=== PATIENT | female | born 1955 | race Two or more races ===

== ENCOUNTER 2016-09-06 20:58 | Inpatient (IN) | payer BC ==
[~2016-09-06] VITALS: Ht 157.5 cm; Wt 135.5 kg
[~2016-09-06 20:58] MED LIST: ATEN-60 PO; CAR200T PO; HYDR12.56 PO; KEPRA PO
[2016-09-06 22:10] LABS: Basophils # (auto) 0 uL; Basophils % (auto) 0.9 % (0.0-2.0); Eosinophils # (auto) 0.3 uL; Eosinophils % (auto) 7.6 % (0.0-7.0); Hematocrit 45.5 % (36.0-46.0); Hemoglobin 15.6 g/dL (12.2-16.2); Lymphocytes # (auto) 1.6 uL; Lymphocytes % (auto) 35.3 % (10.0-50.0); Mean Corpuscular Hemoglobin 33.5 pg (28.0-32.0); Mean Corpuscular Hgb Conc. 34.2 g/dL (32.0-36.0); Mean Corpuscular Volume 97.9 fL (80.0-100.0); Mean Platelet Volume 8.9 fL (7.4-10.4); Monocytes # (auto) 0.3 uL; Monocytes % (auto) 5.7 % (0.0-12.0); Neutrophils # (auto) 2.3 uL; Neutrophils % (auto) 50.5 % (37.0-80.0); Platelet Count (auto) 237 10^3/uL (140-450); White Blood Cell 4.5 10^3/uL (4.4-10.8)
[2016-09-06 22:24] LABS: Albumin 3.9 g/dL (3.4-5.0); BUN/Creatinine Ratio 18.9; Calcium 8.6 mg/dL (8.5-10.1); Potassium 3.4 mmol/L (3.5-5.1)
[2016-09-06 22:37] LABS: Bilirubin, Total 0.3 mg/dL (0.2-1.0); Total Protein 7.5 g/dL (6.4-8.2)
[2016-09-07] MEDS ORDERED: NALBUPHINE HCL 10 MG/1ml INJECTION IV ONE (09:00)
[2016-09-07] MEDS ORDERED: ONDANSETRON HCL 4 MG/2 ML VIAL IV ONE (09:00)
[2016-09-07] MEDS ORDERED: DEXTROSE (50%) 50ML SYRG IV PRN (11:30)
[2016-09-07] MEDS: InsuLIN REG 1unit/0.01ml Soln (100units/ml) SC SCH ×3 (11:30→21:52)
[2016-09-07] MEDS ORDERED: LORazepam 2MG/ML-1ML VIAL IV PRN (11:30)
[2016-09-07] MEDS ORDERED: POTASSIUM CHL 10 Meq TABLET PO ONE (11:30)
[2016-09-07] MEDS: ACCU-CHEK COMFORT CURVE STRIP VI SCH ×3 (11:41→21:25)
[2016-09-07] MEDS ORDERED: ACETAMINOPHEN 325 MG TAB PO PRN (11:45)
[2016-09-07] MEDS ORDERED: ONDANSETRON HCL 4 MG/2 ML VIAL IV PRN (11:45)
[2016-09-07] MEDS ORDERED: TEMAZEPAM 15 MG CAP PO PRN (11:45)
[2016-09-07] MEDS ORDERED: MORPHINE SULF INJ 2 MG/ML SYRINGE 1ML IV PRN (11:45)
[2016-09-07] MEDS ORDERED: DOCUSATE SOD 100 MG CAP PO PRN (11:45)
[2016-09-07] MEDS: LEVETIRACETAM 500 MG TAB PO SCH ×2 (12:00→22:06)
[2016-09-07] MEDS ORDERED: cefTRIAXone 1GM/50ML D5W 50 ML IV ONE (12:00)
[2016-09-07] MEDS: carBAMazepine 200 MG TAB PO SCH ×2 (12:00→22:06)
[2016-09-07] MEDS: FAMOTIDINE 20 MG TAB PO SCH ×2 (12:00→22:06)
[2016-09-07] MEDS: TOPIRAMATE 100 MG TAB PO SCH ×2 (12:00→22:06)
[2016-09-07] MEDS: ATENOLOL 25 MG TAB PO SCH (12:47)
[2016-09-07] MEDS: HCTZ 25 MG TAB PO SCH (12:47)
[2016-09-07] MEDS: ENOXAPARIN SOD 40 MG/0.4 ML SYRINGE SC SCH (12:48)
[2016-09-07] MEDS ORDERED: TOPI100T68 PO ×2 (13:06)
[2016-09-07] MEDS ORDERED: LACO100T PO ×2 (13:06)
[2016-09-07] MEDS ORDERED: KEP500T PO (13:06)
[2016-09-07] MEDS ORDERED: FENO160T8 PO (13:06)
[2016-09-07 13:07] VITALS: BP 130/70
[2016-09-07] MEDS: SODIUM CHLOR 0.9% PF (SALINE LOCK) 10ML VIAL IV SCH ×2 (14:53→22:06)
[2016-09-07 16:24] VITALS: BP 118/56
[2016-09-07] MEDS: HYDROcodone-ACET 5/325MG TAB PO PRN ×2 (17:56→18:03)
[2016-09-07 21:06] VITALS: BP 105/60
[2016-09-07 23:14] LABS: Urine RBC None Seen /hpf (0 - 4)
[2016-09-07 23:31] LABS: Urine Bilirubin Negative (Negative); Urine Blood Negative /uL (Negative); Urine Color Yellow (Yellow); Urine Glucose Normal (Normal); Urine Ketone Negative (Negative); Urine Nitrite Negative (Negative); Urine Squamous Epithelial Cell FEW /hpf (<5); Urine Urobilinogen Normal (Negative); Urine pH 6.5 (5.0-8.0)
[2016-09-08] MEDS: HYDROcodone-ACET 5/325MG TAB PO PRN ×2 (02:53→20:28)
[2016-09-08 05:42] VITALS: BP 100/63
[2016-09-08] MEDS: SODIUM CHLOR 0.9% PF (SALINE LOCK) 10ML VIAL IV SCH ×3 (06:06→22:22)
[2016-09-08] MEDS: InsuLIN REG 1unit/0.01ml Soln (100units/ml) SC SCH ×5 (06:06→22:26)
[2016-09-08] MEDS: ACCU-CHEK COMFORT CURVE STRIP VI SCH ×4 (06:06→22:26)
[2016-09-08 06:18] LABS: Basophils # (auto) 0 uL; Eosinophils # (auto) 0.3 uL; Eosinophils % (auto) 7.5 % (0.0-7.0); Hematocrit 42.9 % (36.0-46.0); Hemoglobin 14.6 g/dL (12.2-16.2); Lymphocytes # (auto) 1.3 uL; Mean Corpuscular Hemoglobin 33.6 pg (28.0-32.0); Mean Corpuscular Hgb Conc. 34.1 g/dL (32.0-36.0); Mean Corpuscular Volume 98.4 fL (80.0-100.0); Mean Platelet Volume 9.4 fL (7.4-10.4); Monocytes # (auto) 0.2 uL; Monocytes % (auto) 5.7 % (0.0-12.0); Neutrophils # (auto) 2.2 uL; Neutrophils % (auto) 53.8 % (37.0-80.0); Platelet Count (auto) 197 10^3/uL (140-450); Red Cell Distribution Width 13.3 % (11.6-16.0); White Blood Cell 4.1 10^3/uL (4.4-10.8)
[2016-09-08 06:29] LABS: Albumin 3.4 g/dL (3.4-5.0); BUN/Creatinine Ratio 19.2; Bilirubin, Total 0.4 mg/dL (0.2-1.0); Calcium 8.2 mg/dL (8.5-10.1); Potassium 3.4 mmol/L (3.5-5.1); Total Protein 6.6 g/dL (6.4-8.2)
[2016-09-08 09:00] VITALS: BP 98/61
[2016-09-08] MEDS ORDERED: POTASSIUM CHL 10 Meq TABLET PO ONE (09:30)
[2016-09-08] MEDS: HCTZ 25 MG TAB PO SCH (10:00)
[2016-09-08] MEDS: ATENOLOL 25 MG TAB PO SCH (10:00)
[2016-09-08] MEDS: cefTRIAXone 1GM/50ML D5W 50 ML IV SCH (10:18)
[2016-09-08] MEDS: ENOXAPARIN SOD 40 MG/0.4 ML SYRINGE SC SCH (10:26)
[2016-09-08] MEDS: LEVETIRACETAM 500 MG TAB PO SCH ×2 (10:30→22:23)
[2016-09-08] MEDS: FAMOTIDINE 20 MG TAB PO SCH ×2 (10:42→22:23)
[2016-09-08] MEDS: carBAMazepine 200 MG TAB PO SCH ×2 (10:42→22:24)
[2016-09-08] MEDS: TOPIRAMATE 100 MG TAB PO SCH ×2 (10:42→22:25)
[2016-09-08] MEDS: MULTIPLE VITAMIN TAB PO SCH (10:42)
[2016-09-08 13:00] VITALS: BP 134/66
[2016-09-08 17:00] VITALS: BP 115/58
[2016-09-08 20:00] VITALS: BP 112/70
[2016-09-08 22:55] VITALS: BP 112/70
[2016-09-09 05:45] VITALS: BP 117/63
[2016-09-09] MEDS: SODIUM CHLOR 0.9% PF (SALINE LOCK) 10ML VIAL IV SCH ×3 (05:57→21:16)
[2016-09-09] MEDS: InsuLIN REG 1unit/0.01ml Soln (100units/ml) SC SCH (06:04)
[2016-09-09] MEDS: ACCU-CHEK COMFORT CURVE STRIP VI SCH (06:04)
[2016-09-09 06:53] LABS: Basophils # (auto) 0 uL; Basophils % (auto) 0.8 % (0.0-2.0); Eosinophils # (auto) 0.3 uL; Hematocrit 43.3 % (36.0-46.0); Hemoglobin 15.1 g/dL (12.2-16.2); Lymphocytes # (auto) 1.5 uL; Lymphocytes % (auto) 38.9 % (10.0-50.0); Mean Corpuscular Hemoglobin 33.8 pg (28.0-32.0); Mean Corpuscular Hgb Conc. 34.9 g/dL (32.0-36.0); Mean Corpuscular Volume 96.9 fL (80.0-100.0); Monocytes # (auto) 0.3 uL; Monocytes % (auto) 7.4 % (0.0-12.0); Neutrophils # (auto) 1.7 uL; Neutrophils % (auto) 44.9 % (37.0-80.0); Platelet Count (auto) 220 10^3/uL (140-450); Red Cell Distribution Width 13.1 % (11.6-16.0); White Blood Cell 3.9 10^3/uL (4.4-10.8)
[2016-09-09 07:10] LABS: Albumin 3.1 g/dL (3.4-5.0); Calcium 8.4 mg/dL (8.5-10.1); Potassium 3.3 mmol/L (3.5-5.1)
[2016-09-09 07:12] LABS: BUN/Creatinine Ratio 22.2
[2016-09-09 07:23] LABS: Bilirubin, Total 0.3 mg/dL (0.2-1.0); Total Protein 6.6 g/dL (6.4-8.2)
[2016-09-09] MEDS: cefTRIAXone 1GM/50ML D5W 50 ML IV SCH (08:27)
[2016-09-09 09:00] VITALS: BP 118/70
[2016-09-09] MEDS: LEVETIRACETAM 500 MG TAB PO SCH ×2 (09:35→21:14)
[2016-09-09] MEDS: MULTIPLE VITAMIN TAB PO SCH (09:35)
[2016-09-09] MEDS: carBAMazepine 200 MG TAB PO SCH ×2 (09:35→21:15)
[2016-09-09] MEDS: TOPIRAMATE 100 MG TAB PO SCH ×2 (09:36→21:15)
[2016-09-09] MEDS: HYDROcodone-ACET 5/325MG TAB PO PRN ×2 (09:36→21:54)
[2016-09-09] MEDS: FAMOTIDINE 20 MG TAB PO SCH ×2 (09:38→21:15)
[2016-09-09] MEDS: ATENOLOL 25 MG TAB PO SCH (09:38)
[2016-09-09] MEDS: ENOXAPARIN SOD 40 MG/0.4 ML SYRINGE SC SCH (09:39)
[2016-09-09] MEDS: HCTZ 25 MG TAB PO SCH (09:47)
[2016-09-09] MEDS ORDERED: ceFAZolin 1GM/50ML D5W 50 ML IV ONE (10:15)
[2016-09-09] MEDS ORDERED: POTASSIUM CHL 20 Meq TABLET PO ONE (10:15)
[2016-09-09 13:00] VITALS: BP 122/59
[2016-09-09] MEDS: ceFAZolin 1GM/50ML D5W 50 ML IV SCH ×2 (14:35→21:14)
[2016-09-09 17:00] VITALS: BP 107/63
[2016-09-09 20:00] VITALS: BP 107/63
[2016-09-09 22:39] VITALS: BP 115/68
[2016-09-10] VITALS (7 sets, daily range): BP systolic 105–119; BP diastolic 57–77
[2016-09-10] MEDS: SODIUM CHLOR 0.9% PF (SALINE LOCK) 10ML VIAL IV SCH ×3 (05:13→22:00)
[2016-09-10] MEDS: ceFAZolin 1GM/50ML D5W 50 ML IV SCH (05:13)
[2016-09-10 05:27] LABS: Basophils # (auto) 0 uL; Basophils % (auto) 0.7 % (0.0-2.0); Eosinophils # (auto) 0.4 uL; Eosinophils % (auto) 8.6 % (0.0-7.0); Hematocrit 43.7 % (36.0-46.0); Lymphocytes # (auto) 1.6 uL; Lymphocytes % (auto) 38.1 % (10.0-50.0); Mean Corpuscular Hemoglobin 33.7 pg (28.0-32.0); Mean Corpuscular Hgb Conc. 34.2 g/dL (32.0-36.0); Mean Corpuscular Volume 98.3 fL (80.0-100.0); Mean Platelet Volume 8.9 fL (7.4-10.4); Monocytes # (auto) 0.3 uL; Neutrophils # (auto) 1.9 uL; Neutrophils % (auto) 45.6 % (37.0-80.0); Platelet Count (auto) 224 10^3/uL (140-450); Red Cell Distribution Width 13.3 % (11.6-16.0); White Blood Cell 4.3 10^3/uL (4.4-10.8)
[2016-09-10 05:41] LABS: BUN/Creatinine Ratio 23.8; Calcium 8.4 mg/dL (8.5-10.1)
[2016-09-10] MEDS: HYDROcodone-ACET 5/325MG TAB PO PRN ×2 (09:19→15:30)
[2016-09-10] MEDS: HCTZ 25 MG TAB PO SCH (10:00)
[2016-09-10] MEDS: ATENOLOL 25 MG TAB PO SCH (10:00)
[2016-09-10] MEDS: TOPIRAMATE 100 MG TAB PO SCH ×2 (10:46→21:46)
[2016-09-10] MEDS: FAMOTIDINE 20 MG TAB PO SCH ×2 (10:47→21:46)
[2016-09-10] MEDS: LEVETIRACETAM 500 MG TAB PO SCH ×2 (10:47→21:45)
[2016-09-10] MEDS: MULTIPLE VITAMIN TAB PO SCH (10:49)
[2016-09-10] MEDS: carBAMazepine 200 MG TAB PO SCH ×2 (10:50→21:46)
[2016-09-10] MEDS: ENOXAPARIN SOD 40 MG/0.4 ML SYRINGE SC SCH (10:51)
[2016-09-10] MEDS: CEPHALEXIN 250 MG CAP PO SCH ×2 (15:24→21:54)
[2016-09-10] MEDS ORDERED: CEPHALEXIN 250 MG CAP PO ONE (21:48)
[2016-09-11 05:00] VITALS: BP 131/67
[2016-09-11] MEDS: SODIUM CHLOR 0.9% PF (SALINE LOCK) 10ML VIAL IV SCH (05:12)
[2016-09-11] MEDS: CEPHALEXIN 250 MG CAP PO SCH (05:14)
[2016-09-11 09:00] VITALS: BP 111/61
[2016-09-11] MEDS: ENOXAPARIN SOD 40 MG/0.4 ML SYRINGE SC SCH (10:15)
[2016-09-11] MEDS: FAMOTIDINE 20 MG TAB PO SCH (10:15)
[2016-09-11] MEDS: ATENOLOL 25 MG TAB PO SCH (10:18)
[2016-09-11] MEDS: TOPIRAMATE 100 MG TAB PO SCH (10:19)
[2016-09-11] MEDS: LEVETIRACETAM 500 MG TAB PO SCH (10:20)
[2016-09-11] MEDS: carBAMazepine 200 MG TAB PO SCH (10:21)
[2016-09-11] MEDS: HCTZ 25 MG TAB PO SCH (10:23)
[2016-09-11] MEDS: MULTIPLE VITAMIN TAB PO SCH (10:23)
[2016-09-11] MEDS: HYDROcodone-ACET 5/325MG TAB PO PRN (10:34)
[2016-09-11 12:10] VITALS: BP 111/61
== END 2016-09-11 14:50 | disposition home or self-care (01) | DRG 603 ==
LOC: ER 21:20 → OVERFLOW 21:21 → OBSVTOIN 21:21 → OVERFLOW 09-07 11:53 → EAST 09-07 12:39 → CENTRAL 09-07 14:20
PROVIDERS: ADMIT Internal Medicine; ATTEND Internal Medicine
DX: L03.115 Cellulitis of right lower limb (principal); E87.0 Hyperosmolality and hypernatremia; Z68.41 Body mass index [BMI] 40.0-44.9, adult; E87.6 Hypokalemia; F32.9 Major depressive disorder, single episode, unspecified; G40.909 Epilepsy, unspecified, not intractable, without status epilepticus; I12.9 Hypertensive chronic kidney disease with stage 1 through stage 4 chronic kidney disease, or unspecified chronic kidney disease; N18.2 Chronic kidney disease, stage 2 (mild); Z90.49 Acquired absence of other specified parts of digestive tract; Z82.49 Family history of ischemic heart disease and other diseases of the circulatory system; Z80.8 Family history of malignant neoplasm of other organs or systems; K76.0 Fatty (change of) liver, not elsewhere classified; E11.22 Type 2 diabetes mellitus with diabetic chronic kidney disease; E11.21 Type 2 diabetes mellitus with diabetic nephropathy; E66.01 Morbid (severe) obesity due to excess calories; F41.9 Anxiety disorder, unspecified; Z71.9 Counseling, unspecified; Z80.9 Family history of malignant neoplasm, unspecified; S89.81XA Other specified injuries of right lower leg, initial encounter; X58.XXXA Exposure to other specified factors, initial encounter; Y92.89 Other specified places as the place of occurrence of the external cause
CPT/HCPCS: 36415; 71010; 73700; 74176; 76856; 80048; 80053; 81001; 82962; 83036; 85025; 87040; 87086; 93306; 93971; 96365; 96372; 96375; G0378; J0690; J0696; J1815; J2405

== ENCOUNTER 2018-03-31 05:05 | Inpatient (IN) | payer SELFPAY ==
[~2018-03-31] VITALS: Ht 167.6 cm; Wt 91.2 kg
[~2018-03-31 05:05] MED LIST changes: +FENO160T8 PO; +KEP500T PO; +LACO100T PO; +TOPI100T68 PO
[2018-03-31 06:10] LABS: Basophils # (auto) 0.1 uL; Basophils % (auto) 0.8 % (0.0-2.0); Eosinophils # (auto) 0.1 uL; Eosinophils % (auto) 0.8 % (0.0-7.0); Hematocrit 51.6 % (36.0-46.0); Hemoglobin 17.5 g/dL (12.2-16.2); Lymphocytes # (auto) 1.3 uL; Lymphocytes % (auto) 15.1 % (10.0-50.0); Mean Corpuscular Hemoglobin 33.2 pg (28.0-32.0); Mean Corpuscular Hgb Conc. 33.8 g/dL (32.0-36.0); Mean Corpuscular Volume 98.1 fL (80.0-100.0); Monocytes # (auto) 0.3 uL; Monocytes % (auto) 3.6 % (0.0-12.0); Neutrophils # (auto) 6.8 uL; Neutrophils % (auto) 79.7 % (37.0-80.0); Nucleated Red Blood Cells % 0.1 %; Platelet Count (auto) 225 10^3/uL (140-450); Red Blood Cells 5.26 10^6/uL (4.0-5.20); Red Cell Distribution Width 13.4 % (11.8-14.3); White Blood Cell 8.6 10^3/uL (4.4-10.8)
[2018-03-31 06:21] LABS: Albumin 4.1 g/dL (3.4-5.0); Calcium 9.1 mg/dL (8.5-10.1); Potassium 3.7 mmol/L (3.5-5.1)
[2018-03-31 06:24] LABS: Bilirubin, Total 0.5 mg/dL (0.2-1.0)
[2018-03-31] MEDS ORDERED: SODIUM CHLORIDE 0.9% 1,000 ML IV ONE ×2 (07:18)
[2018-03-31] MEDS ORDERED: LEVETIRACETAM INJ 500 MG in D5W 5% 100 ML IV ONE (07:30)
[2018-03-31] MEDS ORDERED: SODIUM CHLORIDE 0.9% 1,000 ML IV SCH (08:13)
[2018-03-31] MEDS ORDERED: PROMETHAZINE HCL 25 MG/ML 1ML IV PRN (08:15)
[2018-03-31] MEDS ORDERED: LORazepam 2MG/ML-1ML VIAL IV PRN (08:15)
[2018-03-31] MEDS ORDERED: HYDROcodone-ACET 5/325MG TAB PO PRN (08:15)
[2018-03-31] MEDS ORDERED: ACETAMINOPHEN 500 MG TAB PO PRN (08:15)
[2018-03-31] MEDS ORDERED: NITROGLYCERIN 0.4 MG SL TAB SL PRN (08:15)
[2018-03-31] MEDS ORDERED: LACTULOSE 20Gm/30ML SOLN PO PRN (08:15)
[2018-03-31] MEDS ORDERED: LORazepam 0.5 MG TAB PO PRN (08:15)
[2018-03-31] MEDS ORDERED: MORPHINE SULFATE 4 MG/ML SYR/VIAL IV PRN ×2 (08:15)
[2018-03-31] MEDS ORDERED: TEMAZEPAM 15 MG CAP PO PRN (08:15)
[2018-03-31] MEDS ORDERED: DEXTROSE (50%) 50ML SYRG IV PRN (09:30)
[2018-03-31] MEDS: TRICOR PO SCH (10:00)
[2018-03-31] MEDS: carBAMazepine 200 MG TAB PO SCH ×2 (10:38→21:36)
[2018-03-31] MEDS: LEVETIRACETAM 500 MG TAB PO SCH ×2 (10:39→21:35)
[2018-03-31] MEDS: HCTZ 25 MG TAB PO SCH (10:41)
[2018-03-31] MEDS: ATENOLOL 25 MG TAB PO SCH (10:42)
[2018-03-31] MEDS: PANTOPRAZOLE 40 MG TAB PO SCH (10:43)
[2018-03-31] MEDS: LACOSAMIDE 50 MG TAB PO SCH (10:44)
[2018-03-31] MEDS: ENOXAPARIN SOD 40 MG/0.4 ML SYRINGE SC SCH (11:00)
[2018-03-31] MEDS: ACCU-CHEK COMFORT CURVE STRIP VI SCH ×2 (12:43→18:26)
[2018-03-31 13:00] VITALS: BP 119/73
[2018-03-31] MEDS: SODIUM CHLORIDE 0.9% 1,000 ML IV SCH (14:00)
[2018-03-31 17:00] VITALS: BP 125/70
[2018-03-31] MEDS ORDERED: LACOSAMIDE 50 MG TAB PO SCH (18:00)
[2018-03-31] MEDS ORDERED: TOPIRAMATE 100 MG TAB PO SCH (18:00)
[2018-04-01] MEDS: ACCU-CHEK COMFORT CURVE STRIP VI SCH ×3 (00:27→12:00)
[2018-04-01] MEDS: SODIUM CHLORIDE 0.9% 1,000 ML IV SCH ×2 (04:51→16:40)
[2018-04-01 05:00] VITALS: BP 99/53
[2018-04-01] MEDS: LACOSAMIDE 50 MG TAB PO SCH (05:44)
[2018-04-01 05:53] LABS: Basophils # (auto) 0.1 uL; Basophils % (auto) 1.6 % (0.0-2.0); Eosinophils # (auto) 0.2 uL; Eosinophils % (auto) 4.5 % (0.0-7.0); Hematocrit 44.8 % (36.0-46.0); Hemoglobin 15.4 g/dL (12.2-16.2); Lymphocytes # (auto) 1.6 uL; Lymphocytes % (auto) 36.7 % (10.0-50.0); Mean Corpuscular Hemoglobin 34.1 pg (28.0-32.0); Mean Corpuscular Hgb Conc. 34.4 g/dL (32.0-36.0); Monocytes # (auto) 0.3 uL; Monocytes % (auto) 7.4 % (0.0-12.0); Neutrophils # (auto) 2.1 uL; Neutrophils % (auto) 49.8 % (37.0-80.0); Nucleated Red Blood Cells % 0.2 %; Platelet Count (auto) 213 10^3/uL (140-450); Red Blood Cells 4.53 10^6/uL (4.0-5.20); Red Cell Distribution Width 13.7 % (11.8-14.3); White Blood Cell 4.3 10^3/uL (4.4-10.8)
[2018-04-01 06:11] LABS: Potassium 3.1 mmol/L (3.5-5.1)
[2018-04-01 06:21] LABS: Albumin 3.4 g/dL (3.4-5.0); BUN/Creatinine Ratio 21.5; Bilirubin, Total 0.6 mg/dL (0.2-1.0); Calcium 8.4 mg/dL (8.5-10.1); Total Protein 6.6 g/dL (6.4-8.2)
[2018-04-01] MEDS ORDERED: TOPIRAMATE 100 MG TAB PO SCH (07:00)
[2018-04-01 09:00] VITALS: BP 108/71
[2018-04-01] MEDS: TRICOR PO SCH (10:00)
[2018-04-01] MEDS: carBAMazepine 200 MG TAB PO SCH (10:00)
[2018-04-01] MEDS: ATENOLOL 25 MG TAB PO SCH (10:00)
[2018-04-01] MEDS: LEVETIRACETAM 500 MG TAB PO SCH (10:58)
[2018-04-01] MEDS: HCTZ 25 MG TAB PO SCH (10:58)
[2018-04-01] MEDS: PANTOPRAZOLE 40 MG TAB PO SCH (10:58)
[2018-04-01] MEDS: ENOXAPARIN SOD 40 MG/0.4 ML SYRINGE SC SCH (10:59)
[2018-04-01 13:00] VITALS: BP 114/74
== END 2018-04-01 17:56 | disposition left against medical advice (07) | DRG 101 ==
LOC: EDBD 05:05 → ER 05:08 → TELE 08:13 → TELE-WESTW 09:25
PROVIDERS: ADMIT Internal Medicine; ATTEND Internal Medicine
DX: G40.909 Epilepsy, unspecified, not intractable, without status epilepticus (principal); E86.0 Dehydration; F17.200 Nicotine dependence, unspecified, uncomplicated; I10 Essential (primary) hypertension; E66.9 Obesity, unspecified; F32.9 Major depressive disorder, single episode, unspecified; R73.9 Hyperglycemia, unspecified; Z53.21 Procedure and treatment not carried out due to patient leaving prior to being seen by health care provider; Z68.32 Body mass index [BMI] 32.0-32.9, adult; Z80.0 Family history of malignant neoplasm of digestive organs; Z82.49 Family history of ischemic heart disease and other diseases of the circulatory system; Z90.49 Acquired absence of other specified parts of digestive tract
CPT/HCPCS: 36415; 70450; 80053; 80061; 80201; 82962; 83036; 85025; 85652; 96361; 96365; G0378; J7060